=== PATIENT | male | born 1960 | race Caucasian/White ===

== ENCOUNTER 2021-06-16 10:03 | Emergency (ER) | payer OTHER, SELFPAY ==
[2021-06-16 10:50] VITALS: BP 100/71; PULSE 86; RESP 18; TEMP 36.4; O2SAT 97
--- NOTE | 2021-06-16 11:23 | ED.URI ---
HPI - URI/Sore Throat General Chief Complaint: Upper Respiratory Infection Stated Complaint: nasal congestion Time Seen by Provider: 06/16/21 11:08 Source: patient and RN notes reviewed Mode of arrival: ambulatory Limitations: no limitations History of Present Illness HPI Narrative: Patient presents today complaining of 3-day history of sinus pressure, postnasal drip, nasal congestion, and cough. Denies fever or shortness of breath. He has been taking Claritin-D and using his Astelin nasal spray with some mild relief. Denies sick contacts. MD elicited complaint: cough, nasal congestion and sinus pain Related Data Allergies Allergy/AdvReac Type Severity Reaction Status Date / Time No Known Allergies Allergy Unknown Verified 03/27/21 14:09 Review of Systems Review of Systems: CONSTITUTIONAL: Denies body aches, fever, chills, or sweats. EYES: Denies visual changes, redness, or discharge. ENT: Denies rhinorrhea,sore throat, or otalgia.+ Nausea, postnasal drip, sinus pressure CARDIOVASCULAR: Denies chest pain, palpitations, or edema. RESPIRATORY: Denies dyspnea.+ Cough GASTROINTESTINAL: Denies abdominal pain, nausea, vomiting, or diarrhea. GENITOURINARY: Denies dysuria or hematuria. SKIN: Denies rash, itching, or wounds. MUSCULOSKELETAL: Denies back pain, joint pain, or myalgia. NEUROLOGIC: Denies headache, numbness, tingling, or weakness. PSYCH: Denies depression or anxiety. [facility] Past Medical History Medical History Chronic allergic rhinitis Metabolic syndrome Mixed hyperlipidemia Obstructive sleep apnea Testicular hypofunction Vitamin D deficiency, unspecified Surgical History Surgical History H/O shoulder surgery History of back surgery Family History Family History Father Diabetes mellitus Heart disease Mother Heart disease Grandparent Diabetes mellitus Other Family history of coronary artery disease Social History Social History Smoking status: Never smoker Second hand tobacco smoke exposure: No Alcohol intake: current Drinks per week: 3 Alcohol use details: beer Substance use: never Substance use type: does not use Gender identity (if verbalized by the patient): Male Spiritual care concerns: No Agree to blood products: Yes Comments At time of signature, I have reviewed and agree with nursing past medical, surgical, social and family history unless otherwise noted. Please see nursing chart for further information. There is no relevant family history pertinent to the presenting complaint Exam Narrative: GENERAL: Mildly ill-appearing, well-nourished, and in no acute distress. HEAD: Normocephalic, atraumatic. EYES: EOMI. No redness or drainage. Conjunctivae normal. ENT: Mucous membranes pink and moist. Nares congested. Turbinates mildly swollen with rhinorrhea. TMs normal bilaterally. Throat normal. Uvula midline. NECK: Normal AROM. Supple. No lymphadenopathy. CHEST: No respiratory distress. Clear to auscultation. HEART: Regular rate and rhythm. No murmur appreciated. Normal peripheral pulses. EXTREMITIES: Normal range of motion. No edema. SKIN: Warm, dry, no rash. Capillary refill normal. Normal skin turgor. NEURO: No focal deficits. Alert and oriented x3. Gait steady. PSYCH: Normal affect. No signs of depression or anxiety. Course Course Level of Care: Express Care Visit Vital Signs Vital signs: Vital Signs Temperature 97.5 F L 06/16/21 10:50 Pulse Rate 86 06/16/21 10:50 Respiratory Rate 18 06/16/21 10:50 Blood Pressure 100/71 06/16/21 10:50 Pulse Oximetry 97 06/16/21 10:50 Temperature 97.5 F L 06/16/21 10:50 Pulse Rate 86 06/16/21 10:50 Respiratory Rate 18 06/16/21 10:50 Blood Pressu
== END 2021-06-16 11:30 | disposition home or self-care (01) ==
PROVIDERS: Emergency Provider Nurse Practitioner; PCP Family Medicine
DX: J06.9 Acute upper respiratory infection, unspecified (principal); E78.2 Mixed hyperlipidemia; G47.33 Obstructive sleep apnea (adult) (pediatric); E55.9 Vitamin D deficiency, unspecified; E88.81 Metabolic syndrome and other insulin resistance
CPT/HCPCS: 99213; G0463

== ENCOUNTER 2022-01-21 01:12 | Day surgery (SDC) | payer OTHER, SELFPAY ==
[2022-01-01 12:15] VITALS: BMI 36.5
[2022-01-21 09:41] VITALS: BMI 35.4
[2022-01-21 09:42] VITALS: BP 157/88; PULSE 76; RESP 18; TEMP 36.4; O2SAT 99
[2022-01-21] MEDS: LACTATED RINGERS 1,000 ML 150 ML IV CONT (09:51)
[2022-01-21 09:55] LABS: Glucose Point of Care 111 mg/dl (65-105)
--- NOTE | 2022-01-21 10:07 | PM.HPGS ---
History of Present Illness History of Present Illness Consent: Risks, benefits, and alternatives have been discussed and questions answered. Patient agrees to proceed with procedure. Chief complaint: neoplasm screening Narrative: Elton Maxwell is a 61 year old male Who was referred for colon cancer screening. Review of Systems Review of Systems: All systems reviewed & are unremarkable except as noted in HPI and below PMFSH Past Medical History Medical History Chronic allergic rhinitis Metabolic syndrome Mixed hyperlipidemia Obstructive sleep apnea Testicular hypofunction Vitamin D deficiency, unspecified Surgical History Surgical History H/O shoulder surgery History of back surgery Family History Family History Father Diabetes mellitus Heart disease Mother Heart disease Grandparent Diabetes mellitus Other Family history of coronary artery disease Social History Social History Smoking status: Never smoker Second hand tobacco smoke exposure: No Alcohol intake: current Drinks per week: 3 Alcohol use details: beer Substance use: never Substance use type: does not use Living arrangements: with family Gender identity (if verbalized by the patient): Male Spiritual care concerns: No Agree to blood products: Yes Meds Home Medications and Allergies Home Medications Medication Instructions Recorded Confirmed Type azelastine 205.5 mcg (0.15 %) 1 spray intranasal DAILY 90 days 12/04/20 01/01/22 Rx nasal spray #3 device cholecalciferol (vitamin D3) 125 125 mcg PO DAILY #90 caps 12/04/20 01/01/22 Rx mcg (5,000 unit) capsule fluticasone propionate 50 1 spray intranasal DAILY 90 days 12/04/20 01/01/22 Rx mcg/actuation nasal #36.4 mL spray,suspension syringe with needle 3 mL 20 gauge #100 ea 12/04/20 01/01/22 Rx x 1 1/2 (BD Luer-Erik Syringe) coenzyme Q10 50 mg capsule 50 mg PO DAILY #90 caps 09/10/21 01/01/22 Rx loratadine-pseudoephedrine ER 10 See Rx Instructions .Route 09/10/21 01/01/22 Rx mg-240 mg tablet,extended .COMPLEX #90 tabs [id number] (Wal-itin D) diclofenac 50 mg-misoprostol 200 1 tablet PO BID PRN pain #180 tabs 12/11/21 01/01/22 Rx mcg tablet,immed.and delayed release pravastatin 20 mg tablet 20 mg PO QHS #90 tabs 12/11/21 01/01/22 Rx testosterone cypionate 200 mg/mL 200 mg IM .q2week #10 mL 12/16/21 01/01/22 Rx intramuscular oil L.acidop,casei,lactis,rham-B.lact,monique 1 cap PO DAILY 01/01/22 01/01/22 History 625 mg (10 billion cell) capsule (Advanced Probiotic) metformin 1,000 mg tablet 1,000 mg PO DAILY 01/01/22 01/01/22 History Allergies Allergy/AdvReac Type Severity Reaction Status Date / Time No Known Allergies Allergy Unknown Verified 01/01/22 12:24 Vital Signs Vital Signs - 24 hr 01/21/22 09:42 Temperature 36.4 C Pulse Rate 76 Respiratory Rate 18 Blood Pressure 157/88 H Pulse Oximetry 99 Oxygen Delivery Room Air Exam Const: Nutritional Appearance: obese Resp: Auscultation: clear to auscultation bilaterally Cardio: Rate: regular rate Rhythm: regular rhythm GI: GI Palp: Yes Soft to palpation and No Tenderness to palpation present (GI) Assessment and Plan Assessment and plan (1) Screening for colon cancer: Code(s): Z12.11 - Encounter for screening for malignant neoplasm of colon Status: Acute Assessment and Plan: Colonoscopy with possible biopsy or polypectomy or cautery or injection of substances.
--- NOTE | 2022-01-21 10:30 | WPDANESEPPF ---
Anes - Initial Pre Proc Eval Procedure: Operation Date: 01/21/22 11:00 Proposed Procedures p Screening Colonoscopy - Jorge Weinstein MD Date/Time: 01/21/22 10:30 Surgeon: Jorge Weinstein MD Pre Op Diagnosis: neoplasm screening Patient Data Age: 61 Gender: M Height: 1.78 m Weight: 111.8 kg Last Vital Signs Temp 97.6 F 01/21/22 09:42 Pulse 76 01/21/22 09:42 Resp 18 01/21/22 09:42 BP 157/88 H 01/21/22 09:42 Pulse Ox 99 01/21/22 09:42 O2 Del Method Room Air 01/21/22 09:42 Allergies Allergy/AdvReac Type Severity Reaction Status Date / Time No Known Allergies Allergy Unknown Verified 01/01/22 12:24 Home Medications Medication Instructions Recorded Confirmed Type azelastine 205.5 mcg (0.15 %) 1 spray intranasal DAILY 90 days 12/04/20 01/01/22 Rx nasal spray #3 device cholecalciferol (vitamin D3) 125 125 mcg PO DAILY #90 caps 12/04/20 01/01/22 Rx mcg (5,000 unit) capsule fluticasone propionate 50 1 spray intranasal DAILY 90 days 12/04/20 01/01/22 Rx mcg/actuation nasal #36.4 mL spray,suspension syringe with needle 3 mL 20 gauge #100 ea 12/04/20 01/01/22 Rx x 1 1/2 (BD Luer-Erik Syringe) coenzyme Q10 50 mg capsule 50 mg PO DAILY #90 caps 09/10/21 01/01/22 Rx loratadine-pseudoephedrine ER 10 See Rx Instructions .Route 09/10/21 01/01/22 Rx mg-240 mg tablet,extended .COMPLEX #90 tabs [id number] (Wal-itin D) diclofenac 50 mg-misoprostol 200 1 tablet PO BID PRN pain #180 tabs 12/11/21 01/01/22 Rx mcg tablet,immed.and delayed release pravastatin 20 mg tablet 20 mg PO QHS #90 tabs 12/11/21 01/01/22 Rx testosterone cypionate 200 mg/mL 200 mg IM .q2week #10 mL 12/16/21 01/01/22 Rx intramuscular oil L.acidop,casei,lactis,rham-B.lact,monique 1 cap PO DAILY 01/01/22 01/01/22 History 625 mg (10 billion cell) capsule (Advanced Probiotic) metformin 1,000 mg tablet 1,000 mg PO DAILY 01/01/22 01/01/22 History Laboratory Tests 01/21/22 09:53 POC Capillary Glucose 111 mg/dl H mg/dl (65-105) Patient hx anesthesia problems: none Family hx anesthesia problems: none Results Review: All pre-operative results and documents have been reviewed as part of the pre-operative evaluation. [facility] Past Medical History Medical History Chronic allergic rhinitis Metabolic syndrome Mixed hyperlipidemia Obstructive sleep apnea Testicular hypofunction Vitamin D deficiency, unspecified Surgical History Surgical History H/O shoulder surgery History of back surgery Family History Family History Father Diabetes mellitus Heart disease Mother Heart disease Grandparent Diabetes mellitus Other Family history of coronary artery disease Social History Social History Smoking status: Never smoker Second hand tobacco smoke exposure: No Alcohol intake: current Drinks per week: 3 Alcohol use details: beer Substance use: never Substance use type: does not use Living arrangements: with family Gender identity (if verbalized by the patient): Male Spiritual care concerns: No Agree to blood products: Yes Anes - Eval Final PreProcedure Day of Procedure 01/21/22 10:30 Patient weight: obese Heart: regular rate and rhythm Lungs: clear to auscultation Airway: Mallampati scale class II Neurological: alert and oriented Last oral intake: >/= 8 hours ASA classification: III Emergent: no Anesthetic plan: proceed Anesthesia type and monitoring: general GIVS and standard monitoring Results Review: All pre-operative results and documents have been reviewed as part of the pre-operative evaluation. Informed Consent: The patient's anesthetic plan and its attendant risks and benefits were discussed with the patient/family/PO
[2022-01-21 11:12] VITALS: BP 128/79; PULSE 72; RESP 19; O2SAT 96
[2022-01-21 11:22] VITALS: BP 134/94; PULSE 73; RESP 24; O2SAT 96
[2022-01-21 11:31] VITALS: BP 134/91; PULSE 70; RESP 22; O2SAT 98
== END 2022-01-21 11:31 | disposition home or self-care (01) ==
PROVIDERS: PCP Family Medicine; Visit Provider Internal Medicine Gastroenterology
PROC: 0DJD8ZZ Inspection of Lower Intestinal Tract, Via Natural or Artificial Opening Endoscopic (ICD-10-PCS; CPT 45378; principal; 2022-01-21 11:00)
DX: Z12.11 Encounter for screening for malignant neoplasm of colon (principal); K64.8 Other hemorrhoids; K57.30 Diverticulosis of large intestine without perforation or abscess without bleeding; Z79.84 Long term (current) use of oral hypoglycemic drugs; E78.2 Mixed hyperlipidemia; E55.9 Vitamin D deficiency, unspecified; G47.33 Obstructive sleep apnea (adult) (pediatric); E88.81 Metabolic syndrome and other insulin resistance; E66.9 Obesity, unspecified; Z68.35 Body mass index [BMI] 35.0-35.9, adult
CPT/HCPCS: 45378; 82948; J2704; J7120